=== PATIENT | female | born 1970 | race Caucasian/White ===

== ENCOUNTER → 2019-04-11 | Outpatient (CLI) | payer OTHER | END | disposition home or self-care (01) | LOC: CVU 07:31 | PROVIDERS: ATTEND Internal Medicine Cardiovascular Disease | DX: I67.2 Cerebral atherosclerosis (principal); R94.31 Abnormal electrocardiogram [ECG] [EKG]; I10 Essential (primary) hypertension; Z82.49 Family history of ischemic heart disease and other diseases of the circulatory system | CPT/HCPCS: 93306; 93880 ==

== ENCOUNTER → 2020-09-25 | Outpatient (CLI) | payer OTHER ==
[~2020-09-25] MED LIST: PROG100C16 PO; estrogen patch TD; testosterone PO
== END | disposition home or self-care (01) ==
LOC: STAR 14:31
PROVIDERS: ATTEND Thoracic Surgery (Cardiothoracic Vascular Surgery)
DX: Z20.822 Contact with and (suspected) exposure to COVID-19 (principal); K82.4 Cholesterolosis of gallbladder
CPT/HCPCS: U0003; U0005

== ENCOUNTER 2020-09-30 12:07 | Day surgery (SDC) | payer OTHER ==
[~2020-09-30] VITALS: Ht 158.8 cm; Wt 56.8 kg
[~2020-09-30 12:07] MED LIST changes: +BUPIVACAINE/PF 0.5% ONE; +EPINEPHRINE 1 MG/ML, 1ML ONE
[2020-09-30] MEDS ORDERED: LACTATED RINGERS 1,000 ML IV SCH ×2 (13:00→14:30)
[2020-09-30] MEDS ORDERED: CHLORHEXIDINE 15 ML UDC PO ONE (13:00)
[2020-09-30 13:03] VITALS: BP 146/98
[2020-09-30] MEDS ORDERED: FENTANYL PF 250 MCG/5ML ONE (13:05)
[2020-09-30] MEDS ORDERED: MIDAZOLAM 1 MG/ML, 2ML ONE (13:05)
[2020-09-30] MEDS ORDERED: SCOPOLAMINE 1MG PATCH TD ONE (13:32)
[2020-09-30] MEDS ORDERED: BUPIVACAINE/PF-EPI 0.5% 1:200K INFIL ONE (13:32)
[2020-09-30] MEDS ORDERED: PROPOFOL 50 ML ONE (13:42)
[2020-09-30] MEDS ORDERED: ALBUTEROL SULFATE 2.5 MG/3 ML NPPB PRN (14:00)
[2020-09-30] MEDS ORDERED: LORazepam 2 MG/ML, 1ML IVPush PRN (14:00)
[2020-09-30] MEDS ORDERED: HYDROmorphone 1 MG/ML, 1ML INJ IVPush PRN (14:00)
[2020-09-30] MEDS ORDERED: MEPERIDINE/PF 25MG/0.5ML IVPush PRN (14:00)
[2020-09-30] MEDS ORDERED: LABETALOL 5MG/ML, 20ML IV PRN (14:00)
[2020-09-30] MEDS ORDERED: ACETAMINOPHEN 325 MG TABLET PO PRN (14:00)
[2020-09-30] MEDS ORDERED: FENTANYL PF 100 MCG/2ML IV PRN (14:00)
[2020-09-30] MEDS ORDERED: OXYcodone 5 MG/5 ML ORAL.SOL UDC PO PRN (14:00)
[2020-09-30] MEDS ORDERED: METHOCARBAMOL 1,000 MG in DEXTROSE 5% 100 ML IV PRN (14:00)
[2020-09-30] MEDS ORDERED: DEXAMETHASONE 4 MG/ML, 5ML ONE (14:10)
[2020-09-30] MEDS ORDERED: GLYCOPYRROLATE 0.2MG/1ML, 5ML ONE (14:10)
[2020-09-30] MEDS ORDERED: LIDOCAINE-MPF 2% ,5ML ONE (14:10)
[2020-09-30] MEDS ORDERED: ONDANSETRON 2MG/ML, 2ML ONE (14:10)
[2020-09-30] MEDS ORDERED: PROPOFOL 10 MG/ML, 20ML ONE (14:10)
[2020-09-30] MEDS ORDERED: ROCURONIUM 10MG/ML,5ML ONE (14:10)
[2020-09-30] MEDS ORDERED: CEFAZOLIN 1,000 MG ONE (14:10)
[2020-09-30] MEDS ORDERED: KETOROLAC 30 MG/1 ML ONE (14:10)
[2020-09-30] MEDS ORDERED: NEOSTIGMINE 1 MG/ML, 10ML ONE (14:10)
[2020-09-30] MEDS ORDERED: HYDR-2214 PO (14:20)
[2020-09-30] MEDS ORDERED: ONDANSETRON 2MG/ML, 2ML IVPush PRN (14:30)
[2020-09-30] MEDS ORDERED: HYDROcodone/APAP 5/325 TABLET PO PRN (14:30)
[2020-09-30] MEDS ORDERED: KETOROLAC 30 MG/1 ML IVPush PRN (14:30)
[2020-09-30] MEDS ORDERED: morphine SULFATE 10 MG/ML, 1ML IVPush PRN (14:30)
[2020-09-30] MEDS ORDERED: HALOPERIDOL 5 MG/ML ONE (14:43)
[2020-09-30] MEDS ORDERED: PROMETHAZINE 25 MG/ML, 1ML ONE (14:48)
[2020-09-30] MEDS: PROMETHAZINE 25 MG/ML, 1ML IVPush PRN ×2 (14:53→15:06)
[2020-09-30] MEDS ORDERED: FENTANYL PF 100 MCG/2ML ONE (15:03)
[2020-09-30] MEDS ORDERED: HYDROmorphone 2 MG/ML, 1ML ONE (16:38)
== END 2020-09-30 18:00 | disposition home or self-care (01) ==
LOC: OUT 12:07
PROVIDERS: ATTEND Thoracic Surgery (Cardiothoracic Vascular Surgery)
DX: K81.1 Chronic cholecystitis (principal); I10 Essential (primary) hypertension; F17.210 Nicotine dependence, cigarettes, uncomplicated; Z88.0 Allergy status to penicillin; Z98.890 Other specified postprocedural states; Z79.899 Other long term (current) drug therapy; Z72.89 Other problems related to lifestyle; Z80.0 Family history of malignant neoplasm of digestive organs
CPT/HCPCS: 44970; 47562; 88304; J0171; J0690; J1100; J1170; J1885; J2250; J2405; J2550; J2704; J2710; J3010; J7120